=== PATIENT | female | born 1975 | race Caucasian/White ===

== ENCOUNTER 2022-03-22 20:01 | Emergency (ER) | payer SELFPAY ==
[2022-03-22 20:08] VITALS: PULSE 84; RESP 18; TEMP 36.4; BMI 29.3
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
[2022-03-22] MEDS: HYDROcodone-acetaminophen 5-325 mg Tablet 1 TAB PO (20:12)
== END 2022-03-22 20:46 | disposition home or self-care (01) ==
PROVIDERS: Emergency Provider Emergency Medicine
DX: R07.89 Other chest pain (principal)
CPT/HCPCS: 71101; 99283

== ENCOUNTER → 2022-05-29 14:33 | Outpatient (BNVA) | payer OTHER, SELFPAY | PROVIDERS: PCP Family Medicine; Visit Provider Family Medicine | DX: E11.9 Type 2 diabetes mellitus without complications (principal); Z76.89 Persons encountering health services in other specified circumstances | CPT/HCPCS: 80053; 80061; 82043; 83036; 84443; 85025 ==

== ENCOUNTER → 2022-06-26 09:08 | Outpatient (BNVA) | payer OTHER, SELFPAY | PROVIDERS: PCP Family Medicine; Visit Provider Nurse Practitioner Family | DX: R05.9 Cough, unspecified (principal) | CPT/HCPCS: 87426 ==